=== PATIENT | female | born 1980 | race Caucasian/White ===

== ENCOUNTER 2017-02-27 15:45 | Emergency (ER) | payer OTHER ==
[~2017-02-27] VITALS: Ht 172.7 cm; Wt 92.5 kg
[2017-02-27 15:47] VITALS: Ht 172.7 cm; Wt 92.5 kg
[2017-02-27 17:14] VITALS: BP 140/87; PULSE 72; RESP 17
[2017-02-27 17:18] LABS: BASOPHIL # 0.1 10^3/ul (0.0-0.1); BASOPHILS % 0.7 % (0.0-2.0); EOSINOPHILS # 0.3 10^3/ul (0.0-0.5); EOSINOPHILS % 3.9 % (0.0-7.0); HEMATOCRIT 39.6 % (37.0-47.0); HEMOGLOBIN 13.4 g/dl (12.0-16.0); LYMPHOCYTES # 1.8 10^3/ul (0.8-2.9); LYMPHOCYTES % 26.1 % (15.0-51.0); MEAN CORPUSCULAR HGB CONC 33.8 g/dl (32.0-37.0); MEAN CORPUSCULAR VOLUME 91.7 fl (82.0-101.0); MEAN PLATELET VOLUME 9.9 fl (7.4-10.4); MONOCYTE # 0.5 10^3/ul (0.3-0.9); MONOCYTES % 7.6 % (0.0-11.0); NEUTROPHIL # 4.3 10^3/ul (1.6-7.5); NEUTROPHILS % 61.6 % (39.0-77.0); PLATELET COUNT 299 10^3/UL (140-415); RED BLOOD COUNT 4.32 10^6/ul (4.20-5.40); WHITE BLOOD COUNT 6.9 10^3/ul (4.8-10.8)
--- NOTE | 2017-02-27 17:25 | ERD ---
ER Documentation Chief Complaint Date/Time DATE: 02/27/17 TIME: 17:12 Chief Complaint Sent by PCP for high blood pressure and head pain HPI This is a very pleasant 36-year-old female that presents to the emergency department sent by her primary care physician for elevated blood pressure and headache. The patient indicates that on February 06 roughly 2 weeks ago the patient had gone to a [facility] to get a prescription for control. They obtained blood work and the patient had an unexpected positive test at that time. She indicated that she wanted to terminate the as her and her were not yet expecting a child and therefore was scheduled for a D&C 4 days ago. However the patient was unable to get a ride to the surgical center therefore the patient's was reevaluated today at [address] [place] [address] for preoperative clearance. The patient has been having intermittent headaches for the past 3 days which she states are bandlike , occur at 4 AM and relieved with Tylenol. She states this is not the worst headache of her life. She denies any changes in vision such as blindness or blurriness. She does complain of mild frequency urgency and dysuria. She denies any abdominal pain nausea or vomiting. She denies any bruising. She states there is no tenderness in the right upper quadrant and she has not experienced any seizures or swelling of her lower extremities. She denies any shortness of breath. She indicated that they had taken her blood pressure at the clinic and stated it was significantly elevated and instructed to immediately come to the emergency department to be further evaluated. She denies any neck pain and did not take any antihypertensive medication prior to arrival. ROS All systems reviewed and are negative except as per history of present illness. Allergies Allergies: Coded Allergies: No Known Allergy (Unverified , 02/27/17) Physical Exam Vitals Vital Signs Date Time Temp Pulse Resp B/P Pulse Ox O2 Delivery O2 Flow Rate FiO2 02/27/17 17:14 72 17 140/87 100 Room Air 02/27/17 15:47 98.5 91 18 155/89 100 Physical Exam Constitutional:Well-developed. Well-nourished. HEENT:Normocephalic. Atraumatic.Pupils were equal round reactive to light. Moist mucous membranes.No tonsillar exudates. Funduscopy exam showed sharp optic disks and venous pulsations were present Neck: No nuchal rigidity. No lymphadenopathy. No posterior cervical spine tenderness or step-offs. Respiratory: Not using accessory muscles of respiration.Lungs were clear to auscultation bilaterally. No rhonchi. No rales. No wheezing. Cardiovascular: Regular rate regular rhythm.No murmurs. No rubs were appreciated.S1, S2 normal. Distal pulses are palpable 2+ bilaterally. GI: Abdomen was soft. Nontender. Non Distended. No pulsatile abdominal masses or bruits. No rebound. No guarding. Bowel sounds were present and normal. No tenderness in the right upper quadrant. No gravid uterus Muscle skeletal: Full range of motion of both the upper and lower extremities bilaterally.Normal muscle tone.No assymetrical calf tenderness or swelling. No peripheral edema Skin: No petechia, no purpura. No lesions on the palms or the soles of the feet. No maculopapular rash. NEURO: Patient was alert, awake, orientated x3.No facial droop. Gait observed and normal with no ataxia.Speech had regular rate and rhythm. No focal neurological deficits. Deep tendon reflexes were equal and symmetrical. Result Diagram: 02/27/17 1700 02/27/17 1700 Results 24 hrs Laboratory Tests Test 02/27/17 17:00 White Blood Count 6.910^3/ul Red Blood Count 4.3210^6/ul Hemoglobin 13.4g/dl Hematocrit 39.6% Mean Corpuscular Volume 91.7fl Mean Corpuscular Hemoglobin 31.0pg Mean Corpuscular Hemoglobin Concent 33.8g/dl Red Cell Distribution Width 13.0% Platelet Count 25879^3/UL Mean Platelet Volume 9.9fl Neutrophils % 61.6% Lymphocytes % 26.1% Monocytes % 7.6% Eosinophils % 3.9% Basophils % 0.7% Nucleated Red Blood Cells % 0.0/100WBC Neutrophils # 4.310^3/ul Lymphocytes # 1.810^3/ul Monocytes # 0.510^3/ul Eosinophils # 0.310^3/ul Basophils # 0.110^3/ul Nucleated Red Blood Cells # 0.010^3/ul Urine Color STRAW Urine Clarity CLEAR Urine pH 6.0 Urine Specific [place] 1.011 Urine Ketones NEGATIVEmg/dL Urine Nitrite NEGATIVEmg/dL Urine Bilirubin NEGATIVEmg/dL Urine Urobilinogen NEGATIVEmg/dL Urine Leukocyte Esterase NEGATIVELeu/ul Urine Hemoglobin NEGATIVEmg/dL Urine Glucose NEGATIVEmg/dL Urine Total Protein NEGATIVEmg/dl Sodium Level 144mmol/L Potassium Level 4.5mmol/L Chloride Level 102mmol/L Carbon Dioxide Level 28mmol/L Anion Gap 19 Blood Urea Nitrogen 12mg/dl Creatinine 0.76mg/dl Glucose Level 100mg/dl Uric Acid 3.3mg/dl Calcium Level 9.0mg/dl Total Bilirubin 0.2mg/dl Direct Bilirubin 0.00mg/dl Indirect Bilirubin 0.2mg/dl Aspartate Amino Transf (AST/SGOT) 21IU/L Alanine Aminotransferase (ALT/SGPT) 26IU/L Alkaline Phosphatase 56IU/L Total Protein 8.2g/dl Albumin 4.6g/dl Globulin 3.60g/dl Albumin/Globulin Ratio 1.27 Beta HCG, Quantitative 458.2mIU/ml Procedures/MDM This is a very pleasant 36-year-old female that presented to the emergency department with a headache and elevated blood pressure. The patient had not received any antihypertensives in the emergency department or prior to arrival. The patient's systolic blood pressure was 150. The patient does not know how high her blood pressure was in the office prior to arrival. The patient indicates she had an ultrasound performed several days ago at [facility] which indicated an intrauterine sac with no cardiac activity. She is scheduled for a D&C this Saturday 3 days from now. The patient did not have any risk factors of preeclampsia such as extremes of reproductive age, multiple gestations, molar , smoking or increased body mass index or diabetes. The patient denied any right upper quadrant pain that could be mimicking cholelithiasis. There is no thrombocytopenia or hyperreflexia. The patient did have a headache but she stated this was not severe or worsening and there was no visual disturbances or blindness. The patient did not have a legal urea or proteinuria. There is no signs of seizures to suggest eclampsia and therefore my clinical suspicion was low for life-threatening condition such as preeclampsia or eclampsia. The patient had no strokelike symptoms. She was very pleasant with no focal neurological deficits. The patient had repeat ultrasound which indicated possible early intrauterine at 4 weeks and 6 days. The patient's beta hCG is 400. She indicates that at the onset of her it was in the high thousand and has been trending downward. Therefore indicated this is likely an incomplete miscarriage and she is scheduled for D&C in several days. The patient was discharged home in fair condition. They were instructed to return to the emergency department at any time if there was any worsening of their condition. The patient stated they would follow up with their PCP in the next 24-48 hours to initiate a suitable medication regimen under the care of their PCP as well as to allow their PCP to monitor any drug reactions. The patient was discharged home with prescriptions after they gave informed consent to the new medication. They were also fully informed by myself on the adverse effects and adverse drug interactions in order to provide adequate safeguards to prevent possible adverse reactions to medications. Departure Diagnosis: Primary Impression: Threatened Additional Impression: Tension type headache Headache chronicity pattern: acute headache Intractability: not intractable Qualified Code: G44.209 - Acute non intractable tension-type headache Condition: LIZETH Suh Feb 27, 2017 17:25
[2017-02-27 17:28] LABS: ADD UMIC NO; UR ASCORBIC ACID NEGATIVE (NEGATIVE); UR BILIRUBIN (Dip) NEGATIVE (NEGATIVE); UR BLOOD (Dip) NEGATIVE (NEGATIVE); UR CLARITY CLEAR (CLEAR); UR COLOR STRAW (YELLOW); UR GLUCOSE (Dip) NEGATIVE (NEGATIVE); UR KETONES (Dip) NEGATIVE (NEGATIVE); UR LEUKOCYTE ESTERASE (Dip) NEGATIVE Leu/ul (NEGATIVE); UR NITRITE (Dip) NEGATIVE (NEGATIVE); UR SPECIFIC GRAVITY (Dip) 1.011 (1.003-1.030); UR TOTAL PROTEIN (Dip) NEGATIVE (NEGATIVE); UR UROBILINOGEN (Dip) NEGATIVE (NEGATIVE)
[2017-02-27 17:43] LABS: ALBUMIN 4.6 g/dl (3.3-4.9); BILIRUBIN,INDIRECT 0.2 mg/dl (0-1.1); BILIRUBIN,TOTAL 0.2 mg/dl (0.2-1.3); CREATININE 0.76 mg/dl (0.44-1.00); POTASSIUM 4.5 mmol/L (3.5-5.1); TOTAL PROTEIN 8.2 g/dl (6.1-8.1); URIC ACID 3.3 mg/dl (3.1-7.9)
[2017-02-27 17:44] LABS: ALBUMIN/GLOBULIN RATIO 1.27
--- NOTE | 2017-02-27 18:09 | RADRPT ---
PROCEDURE: US Pelvis/OB. CLINICAL INDICATION: vaginal bleeding TECHNIQUE: Multiple sonographic images of the pelvis were obtained utilizing a transabdominal and endovaginal technique. The images were reviewed on a PACS workstation. COMPARISON: None. FINDINGS: There is a small cystic structure within the endometrium measuring 0.25 cm which would correspond to a calculated gestational age of 4 weeks and 6 days. No pole or yolk sac is yet visualized. The right ovary measures 3.2 x 1.4 cm. The left ovary measures 2.2 x 1.6 cm. There is a corpus luteum cyst in the left ovary. No significant free fluid is present within the pelvis. RPTAT: AA IMPRESSION: Possible early intrauterine at 4 weeks and 6 days. Close followup ultrasound and hCG is recommended. .Donnie Gregory MD, Date Time Electronically viewed and signed by .Donnie Gregory MD, on 02/27/2017 18:09 .S/
== END 2017-02-27 18:25 | disposition home or self-care (01) ==
LOC: FTE 15:45
DX: O20.0 Threatened abortion (principal); O99.351 Diseases of the nervous system complicating pregnancy, first trimester; G44.209 Tension-type headache, unspecified, not intractable; Z3A.01 Less than 8 weeks gestation of pregnancy
CPT/HCPCS: 36415; 76801; 76817; 80053; 81003; 84560; 84702; 85025; 86900; 86901; Z7502

== ENCOUNTER 2017-04-03 19:41 | Emergency (ER) | payer OTHER ==
[~2017-04-03] VITALS: Ht 172.7 cm; Wt 84.0 kg
[2017-04-03 20:24] VITALS: Ht 172.7 cm; Wt 84.0 kg
[2017-04-03 21:21] LABS: BASOPHIL # 0.1 10^3/ul (0.0-0.1); BASOPHILS % 0.5 % (0.0-2.0); EOSINOPHILS # 0.4 10^3/ul (0.0-0.5); EOSINOPHILS % 4.7 % (0.0-7.0); HEMATOCRIT 39.7 % (37.0-47.0); HEMOGLOBIN 13.4 g/dl (12.0-16.0); LYMPHOCYTES # 2.3 10^3/ul (0.8-2.9); LYMPHOCYTES % 24.5 % (15.0-51.0); MEAN CORPUSCULAR HEMOGLOBIN 30.9 pg (29.0-33.0); MEAN CORPUSCULAR HGB CONC 33.8 g/dl (32.0-37.0); MEAN CORPUSCULAR VOLUME 91.7 fl (82.0-101.0); MEAN PLATELET VOLUME 10.2 fl (7.4-10.4); MONOCYTE # 0.7 10^3/ul (0.3-0.9); MONOCYTES % 7.2 % (0.0-11.0); NEUTROPHILS % 62.8 % (39.0-77.0); PLATELET COUNT 276 10^3/UL (140-415); RED BLOOD COUNT 4.33 10^6/ul (4.20-5.40); RED CELL DISTRIBUTION WIDTH 12.2 % (11.5-14.5); WHITE BLOOD COUNT 9.3 10^3/ul (4.8-10.8)
--- NOTE | 2017-04-03 22:02 | RADRPT ---
PROCEDURE: US OB. CLINICAL INDICATION: Positive , vaginal bleeding TECHNIQUE: Transabdominal and transvaginal views of the pelvis are available for review. COMPARISON: 02/27/2017 FINDINGS: Uterus: Normal; 8.1 x 4.2 x 3.5 cm. There is no evidence of myometrial mass. Endometrial cavity: No intrauterine is identified, the thickness is normal measuring 6.1 mm. Slight increased blood flow on Doppler interrogation is noted. Right ovary / adnexa: Ovarian size is mildly enlarged measuring 5.5 x 3 x 2.8 cm and there is no ev idence of adnexal mass. Normal blood flow on Doppler interrogation is present. A cyst with internal debris or hemorrhage measures 1.9 x 1.8 x 1.6 cm. A second anechoic cyst measures 2.7 x 2 x 1.9 cm Left ovary/adnexa: Ovarian size is normal measuring 2.8 x 1.6 x 1.5 cm with no evidence of ovarian or adnexal mass. Normal blood flow seen on Doppler interrogation. Cul-de-sac: A small amount of free fluid is identified possibly physiologic. RPTAT:HJJR IMPRESSION: 1. No intrauterine identified. Ectopic is not excluded, but there are no suspi cious findings at this time. Correlation with serial beta HCGs is suggested with followup as clinic ally indicated. 2. Multiple right ovarian cysts including hemorrhagic and simple cysts the largest measuring 2.7 cm . Normal right ovarian blood flow. 3. Trace amount of free fluid in the cul-de-sac is probably physiologic. Physician Lawrence Date Time Electronically viewed and signed by Physician Lawrence on 04/03/2017 22:02 JR/
[2017-04-03 22:49] LABS: ADD UMIC NO; UR ASCORBIC ACID NEGATIVE (NEGATIVE); UR BILIRUBIN (Dip) NEGATIVE (NEGATIVE); UR BLOOD (Dip) NEGATIVE (NEGATIVE); UR CLARITY CLEAR (CLEAR); UR COLOR YELLOW (YELLOW); UR GLUCOSE (Dip) NEGATIVE (NEGATIVE); UR KETONES (Dip) NEGATIVE (NEGATIVE); UR LEUKOCYTE ESTERASE (Dip) NEGATIVE Leu/ul (NEGATIVE); UR NITRITE (Dip) NEGATIVE (NEGATIVE); UR SPECIFIC GRAVITY (Dip) 1.027 (1.003-1.030); UR TOTAL PROTEIN (Dip) NEGATIVE (NEGATIVE); UR UROBILINOGEN (Dip) 1+ mg/dL (NEGATIVE)
[2017-04-03] MEDS ORDERED: ACET500C5 PO (23:09)
[2017-04-03 23:21] LABS: UR RBC 0 /HPF (0-5); UR SQUAMOUS EPITHELIAL CELL FEW /HPF (FEW)
--- NOTE | 2017-04-04 00:42 | ERD ---
ER Documentation Chief Complaint Date/Time DATE: 04/04/17 TIME: 00:39 Chief Complaint pelvic pain x a week HPI 36-year-old female patient with no sniffing a past medical history presents the ED complaining of pelvic pain that started 1 week ago. States that her last menses was on December 06, 2016. Reports that she is a . States that she was last here February 27, 2017 and stated that she could possibly have an intrauterine . Denies any chest pain, shortness of breath, abdominal pain, nausea, vomiting, diarrhea, rashes, constipation. States that she has had intermittent vaginal bleeding but no current bleeding at this moment. Denies any vaginal discharge, dysuria, urgency, frequency, hematuria. ROS All systems reviewed and are negative except as per history of present illness. Medications Home Meds Active Scripts Acetaminophen* (Tylophen*) 500 Mg Capsule, 1 CAP PO Q6H Y for PAIN AND OR ELEVATED TEMP, #20 CAP Prov:HORACE BALES PA-C 04/03/17 Allergies Allergies: Coded Allergies: No Known Allergy (Unverified , 04/03/17) PMhx/Soc Medical and Surgical Hx: pt denies Medical Hx, pt denies Surgical Hx Hx Alcohol Use: No Hx Substance Use: No Hx Tobacco Use: No Smoking Status: Never smoker Physical Exam Vitals Vital Signs Date Time Temp Pulse Resp B/P Pulse Ox O2 Delivery O2 Flow Rate FiO2 04/03/17 20:24 98.9 98 18 152/97 99 Physical Exam Const: [id number], well-nourished. In no acute distress. Head: Atraumatic, normocephalic Eyes: Normal Conjunctiva without injection. No purulent discharge. ENT: Normal external ear, nose. Moist oropharynx without tonsillar exudates. Non -erythematous pharynx. Uvula midline. No drooling. No trismus. Neck: No cervical midline tenderness. Full range of motion. No meningismus. No cervical lymphadenopathy. No JVD. Resp: Clear to auscultation bilaterally. No wheezing, rhonchi, rales, or crackles. No accessory muscle use. No retractions. Cardio: Regular rate and rhythm. No murmurs, rubs or gallops. Abd: Soft, nontender, non distended. Normal bowel sounds. No palpable masses. No rebound tenderness. No guarding. Negative McBurney's point. Negative psoas sign. Negative obturator sign. : See exam in MDM. Skin: No petechiae or rashes Back: No midline tenderness. No CVA tenderness. Ext: No cyanosis, or edema. Neur: Awake and alert. Normal gait. Normal coordination. Psych: Normal Mood and Affect Result Diagram: 04/03/170 Results 24 hrs Laboratory Tests Test 04/03/17 21:10 White Blood Count 9.310^3/ul Red Blood Count 4.3310^6/ul Hemoglobin 13.4g/dl Hematocrit 39.7% Mean Corpuscular Volume 91.7fl Mean Corpuscular Hemoglobin 30.9pg Mean Corpuscular Hemoglobin Concent 33.8g/dl Red Cell Distribution Width 12.2% Platelet Count 76594^3/UL Mean Platelet Volume 10.2fl Neutrophils % 62.8% Lymphocytes % 24.5% Monocytes % 7.2% Eosinophils % 4.7% Basophils % 0.5% Nucleated Red Blood Cells % 0.0/100WBC Neutrophils # (Manual) 5.810^3/ul Lymphocytes # 2.310^3/ul Monocytes # 0.710^3/ul Eosinophils # 0.410^3/ul Basophils # 0.110^3/ul Nucleated Red Blood Cells # 0.010^3/ul Urine Color YELLOW Urine Clarity CLEAR Urine pH 5.0 Urine Specific [place] 1.027 Urine Ketones NEGATIVEmg/dL Urine Nitrite NEGATIVEmg/dL Urine Bilirubin NEGATIVEmg/dL Urine Urobilinogen 1+mg/dL Urine Leukocyte Esterase NEGATIVELeu/ul Urine Microscopic RBC 0/HPF Urine Microscopic WBC 0/HPF Urine Squamous Epithelial Cells FEW/HPF Urine Hemoglobin NEGATIVEmg/dL Urine Glucose NEGATIVEmg/dL Urine Total Protein NEGATIVEmg/dl Beta HCG, Quantitative 21.1mIU/ml Procedures/[facility] This is a 36-year-old female patient with no significant past medical history presents to the ED complaining of pelvic pain started 1 week ago. Patient is afebrile nontoxic appearing. Patient has normal vital signs. An ultrasound, beta-hCG, CBC, type and RH, UA was ordered to evaluate patient. CBC: No evidence of severe infection or anemia Urine: No elevation in nitrites, leukocyte esterase, hematuria. No evidence of UTI Rh: A positive No indication for Rhogam at this time. beta Hc.1 PROCEDURE: US OB. CLINICAL INDICATION: Positive , vaginal bleeding TECHNIQUE: Transabdominal and transvaginal views of the pelvis are available for review. COMPARISON: 02/27/2017 FINDINGS: Uterus: Normal; 8.1 x 4.2 x 3.5 cm. There is no evidence of myometrial mass. Endometrial cavity: No intrauterine is identified, the thickness is normal measuring 6.1 mm. Slight increased blood flow on Doppler interrogation is noted. Right ovary / adnexa: Ovarian size is mildly enlarged measuring 5.5 x 3 x 2.8 cm and there is no evidence of adnexal mass. Normal blood flow on Doppler interrogation is present. A cyst with internal debris or hemorrhage measures 1.9 x 1.8 x 1.6 cm. A second anechoic cyst measures 2.7 x 2 x 1.9 cm Left ovary/adnexa: Ovarian size is normal measuring 2.8 x 1.6 x 1.5 cm with no evidence of ovarian or adnexal mass. Normal blood flow seen on Doppler interrogation. Cul-de-sac: A small amount of free fluid is identified possibly physiologic. RPTAT:HJJR IMPRESSION: 1. No intrauterine identified. Ectopic is not excluded, but there are no suspicious findings at this time. Correlation with serial beta HCGs is suggested with followup as clinically indicated. 2. Multiple right ovarian cysts including hemorrhagic and simple cysts the largest measuring 2.7 cm. Normal right ovarian blood flow. 3. Trace amount of free fluid in the cul-de-sac is probably physiologic. Patient may be experiencing a miscarriage. No IUP. Patient's beta hCG has down trended to 21 from 458.2. Low suspicion for symptomatic anemia, ectopic , sepsis, PID, appendicitis, ovarian torsion, tubo-ovarian abscess, surgical abdomen, or other emergent conditions. Patient was educated that there is a risk for threatened . Patient to follow up with SENIOR COURTROOM CLERK in 2 days for further evaluation and treatment. Patient is to return sooner to the ED for any worsening symptoms. Patient's questions were answered. Patient understood and agreed with discharge plan. Departure Diagnosis: Primary Impression: Pelvic pain during Condition: Stable Patient Instructions: Miscarriage Referrals: [facility] YOU HAVE RECEIVED A MEDICAL SCREENING EXAM AND THE RESULTS INDICATE THAT YOU DO NOT HAVE A CONDITION THAT REQUIRES URGENT TREATMENT IN THE EMERGENCY DEPARTMENT. FURTHER EVALUATION AND TREATMENT OF YOUR CONDITION CAN WAIT UNTIL YOU ARE SEEN IN YOUR DOCTORS OFFICE WITHIN THE NEXT 1-2 DAYS. IT IS YOUR RESPONSIBILITY TO MAKE AN APPOINTMENT FOR FOLOW-UP CARE. IF YOU HAVE A PRIMARY DOCTOR --you should call your primary doctor and schedule an appointment IF YOU DO NOT HAVE A PRIMARY DOCTOR YOU CAN CALL OUR PHYSICIAN REFERRAL HOTLINE AT IF YOU CAN NOT AFFORD TO SEE A PHYSICIAN YOU CAN CHOSE FROM THE FOLLOWING [facility] [address] [facility] [address] [facility] [address] [facility] [address] [facility] [address] [address] [place] Urgent Care 7 a.m.- 11 p.m. Every Day of the Week NO APPOINTMENT OR AUTHORIZATION NEEDED [facility] Hours: Mon-Fri 9:00 AM - 5:00 PM Additional Instructions: Call your primary care doctor TOMORROW for an appointment during the next 1-2 days for a referral to see an SENIOR COURTROOM CLERK. See the doctor sooner or return here if your condition worsens before your appointment time. HORACE BALES PA-C Apr 04, 2017 00:42 HORACE BALES PA-C Apr 04, 2017 00:42
== END 2017-04-03 23:18 | disposition home or self-care (01) ==
LOC: FTE 19:41
DX: O26.891 Other specified pregnancy related conditions, first trimester (principal); R10.2 Pelvic and perineal pain; Z3A.00 Weeks of gestation of pregnancy not specified
CPT/HCPCS: 36415; 76801; 76817; 81003; 84702; 85025; 86900; 86901; Z7502